=== PATIENT | female | born 1955 | race Caucasian/White ===

== ENCOUNTER 2025-08-04 14:32 | Inpatient (IN) | payer OTHER ==
[2025-08-04] MEDS ORDERED: NA CHLORIDE 0.9% 1,000 ML ONE ×2 (15:02→17:09)
[2025-08-04] MEDS ORDERED: ACTIVATED CHARCOAL 50 GM/240 ML ONE (15:02)
[2025-08-04 15:29] LABS: Blood O2 Saturation 94.2 % (92.0-98.5)
[2025-08-04 15:30] LABS: Arterial Blood Carboxyhemoglob 1.5 % (0.0-1.5); Blood Gas Inspired Oxygen 21.0 %; Blood Gas Oxyhemoglobin 95.2 % (94.0-97.0)
[2025-08-04 15:35] LABS: Absolute Lymphocytes (CBC) 0.7 K/uL (0.7-4.9); Hematocrit 37.2 % (36.0-45.0); Hemoglobin 12.2 g/dL (12.0-15.0); MCH 29.1 pg (27.0-35.0); MCHC 32.7 g/dL (32.0-36.0); MCV 89.2 fL (80-100); MPV 9.1 fL (7.6-11.3); Nucleated RBC Absolute Count 0.0 (0-0); Nucleated Red Blood Cells % 0.0 % (0-0); RBC Red Blood Cell Count 4.18 M/uL (3.86-4.86); White Blood Count 4.70 thou/uL (4.3-10.9)
[2025-08-04 15:41] LABS: PT Prothrombin Time 13.5 SECONDS (10-13.0); PTT, Activated Partial Thromb 26.7 SECONDS (27.2-37.4); Protime INR 1.2
[2025-08-04 15:53] LABS: ALT/SGPT 68 U/L (13-56); AST/SGOT 105 U/L (15-37); Albumin 3.3 g/dL (3.4-5.0); Albumin/Globulin Ratio 0.8 (1.1-1.8); Alkaline Phosphatase 92 U/L (45-117); Anion Gap 12.4 mEq/L (5.0-15.0); BUN Blood Urea Nitrogen 8 mg/dL (7-18); Bilirubin Indirect, Calculated 0.1 mg/dL (0.2-0.8); Globulin 4.2 g/dL (2.3-3.5); Glucose Level 196 mg/dL (74-106); Potassium 3.4 mEq/L (3.5-5.1)
[2025-08-04 17:21] LABS: METHAMPHETAM NEGATIVE (NEGATIVE); THC Cannibis NEGATIVE (NEGATIVE)
[2025-08-04] MEDS ORDERED: ONDANSETRON 4 MG/2 ML VIAL ONE ×2 (17:25→17:28)
--- NOTE | 2025-08-04 17:34 | EDPHYS ---
Physician Documentation [facility] Name: Minerva Kent Age: 70 yrs Sex: Female : 1955 Arrival Date: 08/04/2025 Time: 14:32 Bed 19 Private MD: ED Physician Ki Clancy HPI: 08/04 15:32 This 70 yrs old Female presents to ER via EMS with complaints of Overdose. sp3 15:32 70-year-old female with history of hepatitis C, hypertension, probable alcoholism sp3 presents to the ED with chief complaint overdose without reasonable explanation. Patient herself called EMS after she "realized what she did". Patient states that she was drinking vodka and lost track of what she was doing. She then found 2 bottles of medications that were on her dresser and emptied them into her mouth. First bottle was bupropion and other 1 was sertraline. Bottles were old with 1 from 2019. Unknown quantities in each and unknown whether they even contain the original medication. Patient very bad historian. She is tearful and regretful that she did it saying that "I am stupid". Currently she denies homicidal ideation, suicidal ideation and psychosis. Review of systems negative for headache, chest pain, shortness breath, Rajiv pain, nausea, vomiting, diarrhea, rash, or any other signs or symptoms on ROS at this time.. Historical: - Allergies: 14:37 Codeine; bp - PMHx: 14:37 Hypertensive disorder; HEPATITIS C; bp - Immunization history:: Adult Immunizations up to date. - Infectious Disease History:: Denies. - Social history:: Smoking status: Patient reports the use of cigarette tobacco products, unknown amount. ROS: 15:34 Constitutional: Negative for fever, chills, and weight loss, Eyes: Negative for injury, sp3 pain, redness, and discharge, ENT: Negative for injury, pain, and discharge, Neck: Negative for injury, pain, and swelling, Cardiovascular: Negative for chest pain, palpitations, and edema, Respiratory: Negative for shortness of breath, cough, wheezing, and pleuritic chest pain, Abdomen/GI: Negative for abdominal pain, nausea, vomiting, diarrhea, and constipation, Back: Negative for injury and pain, MS/Extremity: Negative for injury and deformity, Skin: Negative for injury, rash, and discoloration, Neuro: Negative for headache, weakness, numbness, tingling, and seizure, Allergy/Immunology: Negative for hives, rash, and allergies, Endocrine: Negative for neck swelling, polydipsia, polyuria, polyphagia, and marked weight changes, 15:34 All other systems are negative, Exam: 15:35 Constitutional: This is a well developed, well nourished patient who is awake, alert, sp3 and in no acute distress. Head/Face: Normocephalic, atraumatic. Eyes: Pupils equal round and reactive to light, extra-ocular motions intact. Lids and lashes normal. Conjunctiva and sclera are non-icteric and not injected. Cornea within normal limits. Periorbital areas with no swelling, redness, or edema. ENT: Nares patent. No nasal discharge, no septal abnormalities noted. External auditory canals are clear. Oropharynx with no redness, swelling, or masses, exudates, or evidence of obstruction, uvula midline. Mucous membranes moist. Neck: Trachea midline, no thyromegaly or masses palpated, and no cervical lymphadenopathy. Supple, full range of motion without nuchal rigidity, or vertebral point tenderness. No Meningismus. Chest/axilla: Normal chest wall appearance and motion. Nontender with no deformity. No lesions are appreciated. Respiratory: Lungs have equal breath sounds bilaterally, clear to auscultation and percussion. No rales, rhonchi or wheezes noted. No increased work of breathing, no retractions or nasal flaring. Abdomen/GI: Soft, non-tender, with normal bowel sounds. No distension or tympany. No guarding or rebound. No evidence of tenderness throughout. Back: No spinal tenderness. No costovertebral tenderness. Full range of motion. Skin: Warm, dry with normal turgor. Normal color with no rashes, no lesions, and no evidence of cellulitis. MS/ Extremity: Pulses equal, no cyanosis. Neurovascular intact. Full, normal range of motion. Neuro: Awake and alert, GCS 15, oriented to person, place, time, and situation. Cranial nerves II-XII grossly intact. Motor strength 5/5 in all extremities. Sensory grossly intact. Cerebellar exam normal. Normal gait. 15:35 Psych: Patient tearful but denies SI, HI, psychosis and does not appear to be responding to internal stimuli.. Vital Signs: 14:35 BP 140 / 64; Pulse 127; Resp 18; Temp 98; Pulse Ox 96% ; Weight 77.11 kg; bp 16:44 BP 136 / 73; Pulse 122; Resp 17; Pulse Ox 94% on R/A; af3 17:20 BP 146 / 77; Pulse 112; Resp 18; Pulse Ox 92% on R/A; af3 19:05 BP 142 / 72; Pulse 111; Resp 18; Pulse Ox 97% on 2 lpm NC; af3 19:52 BP 136 / 71; Pulse 110; Resp 18; Pulse Ox 100% on R/A; Pain 0/10; tb4 21:00 BP 109 / 89; Pulse 111; Resp 18; Pulse Ox 96% on R/A; tb4 19:52 Pain Scale: Adult tb4 MDM: 14:37 Medical Screening Exam initiated sp3 15:36 Data reviewed: vital signs, nurses notes, EMS record, old medical records, lab test sp3 result(s), EKG. ED course: 70-year-old female with accidental polypharmacy overdose as reported by her while drinking alcohol. She denies SI, HI or psychosis. Consider on differential accidental overdose versus alcohol induced poor behavior versus suicidal attempt. Toxicology workup pending. Patient is going to receive activated charcoal at appropriate dose. Patient is also tachycardic and will receive IV fluids and we will reevaluate to determine disposition which is probable admission.. 17:27 ED course: Patient still nauseated. Heart rate down to 108. We will place patient in sp3 observation for morning labs.. 08/04 14:44 Order name: Acetaminophen; Complete Time: 16:19 sp3 08/04 14:44 Order name: Basic Metabolic Panel; Complete Time: 16:19 sp3 08/04 14:44 Order name: CBC with Diff; Complete Time: 16:19 3 08/04 14:44 Order name: ETOH Level; Complete Time: 16:19 sp3 08/04 14:44 Order name: Hepatic Function; Complete Time: 16:19 sp3 08/04 14:44 Order name: PT-INR; Complete Time: 16:19 3 08/04 14:44 Order name: Ptt, Activated; Complete Time: 16:19 3 08/04 14:44 Order name: Salicylate; Complete Time: 16:19 sp3 08/04 14:44 Order name: Urine Drug Screen; Complete Time: 17:34 sp3 08/04 14:44 Order name: ABG; Complete Time: 16:19 sp3 08/04 18:24 Order name: CBC with Automated Diff EDMS 08/04 18:24 Order name: CBC with Automated Diff EDMS 08/04 18:24 Order name: Comprehensive Metabolic Panel EDMS 08/04 18:24 Order name: Comprehensive Metabolic Panel EDMS 08/04 18:24 Order name: Magnesium EDMS 08/04 18:24 Order name: Magnesium EDMS 08/04 18:24 Order name: Phosphorus EDMS 08/04 18:24 Order name: Phosphorus EDMS 08/04 14:44 Order name: EKG; Complete Time: 14:44 sp3 08/04 14:44 Order name: EKG - Nurse/Tech; Complete Time: 15:28 sp3 08/04 14:44 Order name: IV Saline Lock; Complete Time: 15:05 sp3 08/04 14:44 Order name: Labs collected and sent; Complete Time: 15:05 sp3 08/04 14:44 Order name: Suicide Precautions; Complete Time: 15:41 sp3 08/04 14:44 Order name: Suicide Screening ([place]); Complete Time: 15:41 sp3 08/04 14:44 Order name: NPO: Except meds; Complete Time: 15:40 sp3 Administered Medications: 15:15 Drug: NS 0.9% IV 1000 ml IV at 1000 ml once; to be given as a bolus over 60 minutes bp Route: IV; Rate: 1000 ml; Site: right hand; 16:15 Follow up: Response: No adverse reaction; IV Status: Completed infusion; IV Intake: af3 1000ml 15:15 Drug: Actidose PO Suspension (50 g/240 mL) 1 g/kg PO once Route: PO; bp 19:03 Follow up: Response: No adverse reaction af3 17:29 Drug: NS 0.9% IV 1000 ml IV at 1 bolus Per protocol; to be given as a bolus over 60 af3 minutes Route: IV; Rate: 1 bolus; Site: left hand; 19:03 Follow up: Response: No adverse reaction; IV Status: Completed infusion; IV Intake: af3 1000ml 17:29 Drug: Ondansetron IVP 4 mg IVP once; over 2 minutes Route: IVP; Site: left hand; af3 18:00 Follow up: Response: No adverse reaction af3 Disposition Summary: 08/04/25 17:34 Hospitalization Ordered Notes: Hospitalization Status: Inpatient Admission sp3 Provider: Jorge A Tian sp3 Condition: Fair sp3 Problem: new sp3 Symptoms: have worsened sp3 Bed/Room Type: Standard sp3 Location: Intensive Care Unit(08/04/25 21:31) [facility] Room Assignment: -(08/04/25 21:31) [facility] Diagnosis - Poly form overdose, alcohol intoxication, vomiting sp3 Forms: - Medication Reconciliation Form sp3 - SBAR form sp3 - Leadership Thank You Letter sp3 Critical care time excluding procedures: 15:37 Critical care time: Bedside Care: 20 minutes, Consultation: 10 minutes. Total time: 30 sp3 minutes Signatures: Dispatcher [employer] EDPretty Tomas Shelby, RN RN Mahin Sweet RN RN Ki Clancy MD MD sp3 [facility] Sherry Schmid RN RN af3 Corrections: (The following items were deleted from the chart) 18:40 17:34 sp3 bd 18:44 17:34 Intensive Care Unit sp3 ss 18:44 18:40 3- bd ss 21:31 18:44 Telemetry/MedSurg (Inpatient) kmf 21:31 18:44 kmf
--- NOTE | 2025-08-04 17:34 | ER ---
Nurse's Notes [facility] Name: Minerva Kent Age: 70 yrs Sex: Female : 1955 Arrival Date: 08/04/2025 Time: 14:32 Bed 19 Private MD: Diagnosis: Poly form overdose, alcohol intoxication, vomiting Presentation: 08/04 14:35 Chief complaint: EMS states: INTENTIONAL OD OF 100 MG SERTRALINE x45, 100 BUSPAR x90 bp AND 0.5 BOTTLE VODKA. Coronavirus screen: At this time, the client does not indicate any symptoms associated with coronavirus-19. Ebola Screen: No symptoms or risks identified at this time. Initial Sepsis Screen: Does the patient meet any 2 criteria? HR > 90 bpm. No. Patient's initial sepsis screen is negative. Does the patient have a suspected source of infection? No. Patient's initial sepsis screen is negative. Risk Assessment: Do you want to hurt yourself or someone else? Patient reports no desire to harm self or others. Onset of symptoms was August 04, 2025. Care prior to arrival: Medication(s) given: zofran 4 mg. 14:35 Method Of Arrival: EMS: [facility] bp 14:35 Acuity: ENEDINA 2 bp Triage Assessment: 14:37 General: Appears in no apparent distress. Behavior is cooperative, appropriate for age, bp anxious. Pain: Denies pain. EENT: No deficits noted. Neuro: Reports weakness. Cardiovascular: Rhythm is sinus tachycardia. Respiratory: No deficits noted. GI: No signs and/or symptoms were reported involving the gastrointestinal system. : No signs and/or symptoms were reported regarding the genitourinary system. Derm: No deficits noted. Musculoskeletal: No deficits noted. Historical: - Allergies: 14:37 Codeine; bp - PMHx: 14:37 Hypertensive disorder; HEPATITIS C; bp - Immunization history:: Adult Immunizations up to date. - Infectious Disease History:: Denies. - Social history:: Smoking status: Patient reports the use of cigarette tobacco products, unknown amount. Screenin:18 [facility] ED Fall Risk Assessment (Adult) History of falling in the last 3 months, af3 including since admission No falls in past 3 months (0 pts) Confusion or Disorientation No (0 pts) Intoxicated or Sedated No (0 pts) Impaired Gait No (0 pts) Mobility Assist Device Used No (0 pt) Altered Elimination No (0 pt) Score/Fall Risk Level 0 - 2 = Low Risk Oriented to surroundings, Maintained a safe environment, Educated pt \\T\\ family on fall prevention, incl call for assistance when getting out of bed. Abuse screen: Denies threats or abuse. Denies injuries from another. Nutritional screening: No deficits noted. Tuberculosis screening: No symptoms or risk factors identified. Assessment: 16:08 General: Appears in no apparent distress. comfortable, well groomed, well developed, af3 Behavior is calm, cooperative, appropriate for age, writing on both legs reading, "I love you, Im sorry." . Pain: Denies pain. Neuro: Level of Consciousness is awake, alert, obeys commands, Oriented to person, place, time, situation, Appropriate for age. Cardiovascular: Patient's skin is warm and dry. Respiratory: Airway is patent Respiratory effort is even, unlabored, Respiratory pattern is regular, symmetrical. 17:20 Reassessment: Pt noted to have 350mL of emesis. Dr. Clancy made aware. cm10 18:34 Reassessment: Patient appears in no apparent distress at this time. No changes from af3 previously documented assessment. Patient and/or family updated on plan of care and expected duration. Pain level reassessed. 19:52 Reassessment: Patient is alert, oriented x 3, equal unlabored respirations, skin tb4 warm/dry/pink. Patient denies pain at this time. Patient states feeling better. General: Appears in no apparent distress. comfortable, Behavior is calm, cooperative. Pain: Denies pain. Neuro: Level of Consciousness is awake, alert, obeys commands, Oriented to person, place, time, situation, Cyber Defense Analyst are equal bilaterally Moves all extremities. Full function Gait is steady, Speech is normal, Facial symmetry appears normal. Cardiovascular: Patient's skin is warm and dry. Respiratory: Airway is patent Respiratory effort is even, unlabored, Respiratory pattern is regular, symmetrical. GI: Bowel sounds present X 4 quads. Abd is soft and non tender X 4 quads. Reports nausea. : No deficits noted. No signs and/or symptoms were reported regarding the genitourinary system. EENT: No deficits noted. No signs and/or symptoms were reported regarding the EENT system. Derm: Skin is intact, is healthy with good turgor, Skin is dry, Skin is normal, Skin temperature is warm. Musculoskeletal: Circulation, motion, and sensation intact. Range of motion: intact in all extremities. 19:57 Reassessment: Patient denies SI and HI. Patient states she does not remember taking tb4 anything but vodka. Overdose: 15:59 [place] Suicide Severity Screening: "In the past month, have you wished you were af3 or wished you could go to sleep and not wake up?" Patient responds "no." "In the past month, have you actually had any thoughts of killing yourself?" Patient responds "no." "In your lifetime, have you ever done anything, started to do anything, or prepared to do anything to end your life?" Patient responds "no.". 19:56 [place] Suicide Severity Screening: "In the past month, have you wished you were tb4 or wished you could go to sleep and not wake up?" Patient responds "no." "In the past month, have you actually had any thoughts of killing yourself?" Patient responds "no." "In your lifetime, have you ever done anything, started to do anything, or prepared to do anything to end your life?" Patient responds "no.". 20:20 [place] Suicide Severity Screening: "In the past month, have you wished you were tb4 or wished you could go to sleep and not wake up?" Patient responds "no." "In the past month, have you actually had any thoughts of killing yourself?" Patient responds "no." "In your lifetime, have you ever done anything, started to do anything, or prepared to do anything to end your life?". 20:21 [place] Suicide Severity Screening: "In the past month, have you wished you were tb4 or wished you could go to sleep and not wake up?" Patient responds "yes." Based off client's responses, additional C-SSRS screening questions required. Vital Signs: 14:35 BP 140 / 64; Pulse 127; Resp 18; Temp 98; Pulse Ox 96% ; Weight 77.11 kg; bp 16:44 BP 136 / 73; Pulse 122; Resp 17; Pulse Ox 94% on R/A; af3 17:20 BP 146 / 77; Pulse 112; Resp 18; Pulse Ox 92% on R/A; af3 19:05 BP 142 / 72; Pulse 111; Resp 18; Pulse Ox 97% on 2 lpm NC; af3 19:52 BP 136 / 71; Pulse 110; Resp 18; Pulse Ox 100% on R/A; Pain 0/10; tb4 21:00 BP 109 / 89; Pulse 111; Resp 18; Pulse Ox 96% on R/A; tb4 19:52 Pain Scale: Adult tb4 ED Course: 14:33 Patient arrived in ED. bd 14:34 Mahin Sweet, RN is Primary Nurse. bp 14:35 Ki Clancy MD is Attending Physician. sp3 14:37 Triage completed. bp 14:37 Arm band placed on. bp 15:05 Initial lab(s) drawn, by laboratory chemist, sent to lab. Inserted saline lock: 22 gauge in right ts3 hand, using aseptic technique. Blood collected. Flushed with 10 mL NS. 15:28 EKG done, by ED staff, reviewed by Ki Clancy MD. ts3 16:18 Patient has correct armband on for positive identification. Bed in low position. af3 Provided Education on: er policies and procedures . 16:46 Urine collected: sent to lab. ts3 17:29 Jorge A Tian MD is Hospitalizing Provider. sp3 17:29 Inserted saline lock: 18 gauge in left hand, using aseptic technique. Flushed with 10 af3 mL NS. 17:30 Primary Nurse role handed off by Mahin Sweet, RN cm10 17:30 Francisca Campos, RN is Primary Nurse. cm10 19:02 No provider procedures requiring assistance completed. af3 22:57 Patient admitted, IV remains in place. vc1 Administered Medications: 15:15 Drug: NS 0.9% IV 1000 ml IV at 1000 ml once; to be given as a bolus over 60 minutes bp Route: IV; Rate: 1000 ml; Site: right hand; 16:15 Follow up: Response: No adverse reaction; IV Status: Completed infusion; IV Intake: af3 1000ml 15:15 Drug: Actidose PO Suspension (50 g/240 mL) 1 g/kg PO once Route: PO; bp 19:03 Follow up: Response: No adverse reaction af3 17:29 Drug: NS 0.9% IV 1000 ml IV at 1 bolus Per protocol; to be given as a bolus over 60 af3 minutes Route: IV; Rate: 1 bolus; Site: left hand; 19:03 Follow up: Response: No adverse reaction; IV Status: Completed infusion; IV Intake: af3 1000ml 17:29 Drug: Ondansetron IVP 4 mg IVP once; over 2 minutes Route: IVP; Site: left hand; af3 18:00 Follow up: Response: No adverse reaction af3 Medication: 19:52 VIS not applicable for this client. tb4 Intake: 16:15 IV: 1000ml; Total: 1000ml. af3 19:03 IV: 1000ml; Total: 2000ml. af3 Output: 17:31 Gastric: 350ml (Emesis); Total: 350ml. cm10 Outcome: 17:34 Decision to Hospitalize by Provider. sp3 22:56 Admitted to ICU accompanied by nurse, accompanied by tech, via stretcher, room 8, vc1 22:56 Condition: stable 22:56 Instructed on the need for admit, 22:57 Patient left the ED. vc1 Signatures: Prtety Millan Brian, RN RN bp Ki Clancy MD MD sp3 Lisette Vega RN RN vc1 Francisca Campos RN RN cm10 Sherry Schmid RN RN af3 Penny Leong, RN RN tb4 Ambar Zafar ts3 Corrections: (The following items were deleted from the chart) 14:46 14:35 BP 140 / 64; Pulse 127bpm; Resp 18bpm; Pulse Ox 96%; Temp 98F; bp bp 18:46 16:08 General: Appears in no apparent distress. comfortable, well groomed, well af3 developed, Behavior is calm, cooperative, appropriate for age, af3
--- NOTE | 2025-08-04 17:48 | P.HP ---
Certification for Inpatient Patient admitted to: Inpatient With expected LOS: >2 Midnights Practitioner: I am a practitioner with admitting privileges, knowledge of patient current condition, hospital course, and medical plan of care. Services: Services provided to patient in accordance with Admission requirements found in Title 42 Section 412.3 of the Code of Federal Regulations Patient History Date of Service: 08/04/25 Reason for admission: Drug overdose History of Present Illness: 70 yrs old Female with past medical history of hypertension, hepatitis C who was brought to ER with drug overdosage. She also has a history of alcoholism. She presents to the ED with chief complaint overdose without reasonable explanation. Patient is a poor historian hence most of the history is obtained from the chart review and also talking to the ER physician. Patient herself called EMS after she "realized what she did". Patient states that she was drinking vodka and lost track of what she was doing. She then found 2 bottles of medications that were on her dresser and emptied them into her mouth. First bottle was bupropion and other 1 was sertraline. Unknown quantities in each and unknown whether they even contain the original medication. Currently she denies homicidal ideation, suicidal ideation and psychosis. Patient was assessed in the ER and was admitted for further management of drug overdosage to ICU Allergies codeine Allergy (Unverified 08/04/25 20:46) unknown - Past Medical/Surgical History Past Medical History: Reviewed- Non-Contributory -: Hypertension, hyperlipidemia Past Surgical History: Reviewed- Non-Contributory - Social History Smoking Status: Never smoker Review of Systems 10-point ROS is otherwise unremarkable Physical Examination - Vital Signs Temperature: 97.8 F Blood Pressure: 136/72 Pulse: 78 Respirations: 18 Pulse Ox (%): 94 - Physical Exam General: Alert, In no apparent distress, Cooperative HEENT: Atraumatic, Normocephalic Neck: Supple Respiratory: Clear to auscultation bilaterally, Normal air movement Cardiovascular: Regular rate/rhythm, Normal S1 S2 Capillary refill: <2 Seconds Gastrointestinal: Soft and benign, W/out hepatosplenomegaly Musculoskeletal: No clubbing, No swelling Integumentary: No rashes Neurological: Other (Alert awake nonfocal) Lymphatics: No axilla or inguinal lymphadenopathy - Studies Laboratory Data (last 24 hrs) 08/04/25 08/04/25 08/04/25 15:04 15:02 15:02 WBC 4.70 Hgb 12.2 Hct 37.2 Plt Count 265 PT 13.5 H INR 1.20 APTT 26.7 L Sodium 144 Potassium 3.4 L BUN 8 Creatinine 0.71 Glucose 196 H Total Bilirubin 0.3 AST 105 H ALT 68 H Alkaline Phosphatase 92 Assessment and Plan - Plan Drug overdose Monitor closely on telemetry in ICU IV hydration Watch closely for any arrhythmias Monitor closely for respiratory compromise Patient may need psych evaluation Patient denies any suicidal ideation Hypertension Continue home medications and titrate as needed Hydralazine as needed Hypokalemia Electrolytes monitor and replace accordingly Elevated LFTs LFTs trended and monitored GI/DVT prophylaxis Advanced directive full code Discharge Plan: Home Plan to discharge in: 48 Hours - Advance Directives Does patient have a Living Will: No Does patient have a Durable POA for Healthcare: No - Code Status/Comfort Care Code Status: Full Code Time Spent Managing Pts Care (In Minutes): 48
[2025-08-04] MEDS ORDERED: ACETAMINOPHEN 325 MG TABLET PO PRN (18:19)
[2025-08-04] MEDS: NA CHLORIDE 0.9% 1,000 ML IV SCH (23:02)
--- NOTE | 2025-08-05 02:46 | P.PN ---
Date of Service: 08/05/25 Subjective Patient is clinically doing better. She denies being suicidal. She is a little unsteady but otherwise doing well with no complaints. Physical Examination - Vital Signs reviewed - Physical Exam General: Alert, In no apparent distress, Cooperative Respiratory: Clear to auscultation bilaterally, Normal air movement Cardiovascular: Regular rate/rhythm, Normal S1 S2 Gastrointestinal: Soft and benign, W/out hepatosplenomegaly Musculoskeletal: No clubbing, No swelling Integumentary: No rashes Neurological: Other (Alert awake nonfocal) Assessment and Plan - Assessment/Plan 1. Drug overdose; unintentional. Monitor closely on telemetry. IV hydration. Monitor respiratory status. Patient's ambulation is a little unsteady but is low she ambulates without difficulty tomorrow that she should be able to go home. She was counseled regarding being cautious with taking medications especially while she is drinking. She says she is going to refrain from alcohol use going forward. 2. Hypertension; Continue home medications and titrate as needed 3. Hypokalemia; Electrolytes monitor and replace accordingly 4. Elevated LFTs; secondary to EtOH intoxication. LFTs trended and monitored GI/DVT prophylaxis Advanced directive full code Discharge Plan: Home Plan to discharge in: 48 Hours - Advance Directives Does patient have a Living Will: No Does patient have a Durable POA for Healthcare: No - Code Status/Comfort Care Code Status: Full Code Time Spent Managing Pts Care (In Minutes): 30
[2025-08-05 05:11] LABS: Absolute Lymphocytes (CBC) 1.1 K/uL (0.7-4.9); Hematocrit 34.8 % (36.0-45.0); Hemoglobin 11.3 g/dL (12.0-15.0); MCH 29.1 pg (27.0-35.0); MCHC 32.6 g/dL (32.0-36.0); MCV 89.2 fL (80-100); MPV 8.6 fL (7.6-11.3); Nucleated RBC Absolute Count 0.0 (0-0); Nucleated Red Blood Cells % 0.1 % (0-0); RBC Red Blood Cell Count 3.90 M/uL (3.86-4.86); White Blood Count 6.00 thou/uL (4.3-10.9)
[2025-08-05 05:28] LABS: ALT/SGPT 55.0 U/L (13-56); AST/SGOT 75.0 U/L (15-37); Albumin 3.0 g/dL (3.4-5.0); Albumin/Globulin Ratio 0.8 (1.1-1.8); Alkaline Phosphatase 83.0 U/L (45-117); Anion Gap 7.9 mEq/L (5.0-15.0); BUN Blood Urea Nitrogen 5.0 mg/dL (7-18); Globulin 3.6 g/dL (2.3-3.5); Glucose Level 117.0 mg/dL (74-106); Magnesium 1.9 mg/dL (1.6-2.4); Potassium 3.9 mEq/L (3.5-5.1)
[2025-08-05] MEDS: POTASSIUM CL SA 10 MEQ TAB PO ONE (06:17)
[2025-08-05] MEDS: ONDANSETRON 4 MG/2 ML VIAL IV PRN (06:31)
[2025-08-05 19:59] VITALS: O2SAT 98
[2025-08-06 05:39] VITALS: BMI 29.5
[2025-08-06] MEDS: PANTOPRAZOLE 40MG TABLET PO SCH (09:11)
[2025-08-06 09:31] LABS: Anion Gap 8.4 mEq/L (5.0-15.0); BUN Blood Urea Nitrogen 6.0 mg/dL (7-18); Glucose Level 115.0 mg/dL (74-106); Magnesium 2.0 mg/dL (1.6-2.4); Potassium 4.4 mEq/L (3.5-5.1)
[2025-08-06 15:27] VITALS: BP 137/74; TEMP 97.8
== END 2025-08-06 12:00 | disposition home or self-care (01) | DRG 918 ==
LOC: ER 14:32 → ERHOLD 18:19 → 3RD-ICU 22:35
PROVIDERS: ADMIT Family Medicine; ATTEND Hospitalist
PROC: 4A033R1 Measurement of Arterial Saturation, Peripheral, Percutaneous Approach (ICD-10-PCS; principal; 2025-08-04)
DX: T43.291A Poisoning by other antidepressants, accidental (unintentional), initial encounter (principal); T43.221A Poisoning by selective serotonin reuptake inhibitors, accidental (unintentional), initial encounter; E87.6 Hypokalemia; I10 Essential (primary) hypertension; R79.89 Other specified abnormal findings of blood chemistry; F17.210 Nicotine dependence, cigarettes, uncomplicated; F10.229 Alcohol dependence with intoxication, unspecified; Z88.5 Allergy status to narcotic agent; Y90.5 Blood alcohol level of 100-119 mg/100 ml
CPT/HCPCS: 36415; 36600; 80048; 80053; 80076; 80143; 80179; 80307; 82077; 82805; 83735; 84100; 85025; 85610; 85730; 93005; 94760; 96361; 96374; 99285; J2405; J7030